=== PATIENT | female | born 1970 | race Caucasian/White ===

== ENCOUNTER 2016-07-12 09:04 | Emergency (ER) | payer OTHER ==
[~2016-07-12] VITALS: Ht 160 cm; Wt 76.0 kg
[~2016-07-12 09:04] MED LIST: FER325 PO
[2016-07-12 09:06] VITALS: Ht 160 cm; Wt 76.0 kg
[2016-07-12] MEDS ORDERED: DIPHENHYDRAMINE 25 MG CAP PO ONE (09:30)
--- NOTE | 2016-07-12 09:32 | ERA ---
ER Documentation Chief Complaint Date/Time DATE: 07/12/16 TIME: 09:31 Chief Complaint total body rash x lastnight (on clinda x 10 days) HPI Patient is a 12 hour history of hives. Patient does not state any environmental factors. The rash is covering the upper torso and extends onto the neck but does not involve the oral cavity. Patient finished clindamycin 3 days ago for a dental procedure. There has been no swelling or pain in the mouth. The patient. Patient has no other complaints. Denies any heart conditions. ROS All systems reviewed and are negative except as per history of present illness. Medications Home Meds Active Scripts Epinephrine (Epipen Jr 2-Uziel) 0.15 Mg/0.3 Ml Pen.injctr, 1 EA INJ ONCE Y for ALLERGIC REACTION, #1 EA Prov:AUBREE HODGE PA-C 07/12/16 Diphenhydramine Hcl* (Benadryl*) 25 Mg Cap, 25 MG PO Q6, #30 CAP Prov:AUBREE HODGE PA-C 07/12/16 Methylprednisolone* (Medrol* DOSE PACK) 4 Mg/Dose-Pack Tab.ds.pk, 4 MG PO . DIRECTED, #1 PACKET Prov:AUBREE HODGE PA-C 07/12/16 Ferrous Sulfate* (Ferrous Sulfate*) 325 Mg Tabec, 325 MG PO TID, #60 TAB Prov:TRINO MILTON PA-C 05/02/15 Allergies Allergies: Coded Allergies: Sulfa (Sulfonamide Antibiotics) (Verified Allergy, Intermediate, 07/12/16) clindamycin (Verified Allergy, Unknown, RASH, 07/12/16) PMhx/Soc History of Surgery: Yes (c-sections, rt wrist mass) Anesthesia Reaction: No Hx Neurological Disorder: No Hx Respiratory Disorders: No Hx Cardiac Disorders: No Hx Psychiatric Problems: No Hx Miscellaneous Medical Probl: Yes (ANEMIA) Hx Alcohol Use: No Hx Substance Use: No Hx Tobacco Use: No Smoking Status: Never smoker Physical Exam Vitals Vital Signs Date Time Temp Pulse Resp B/P Pulse Ox O2 Delivery O2 Flow Rate FiO2 07/12/16 09:06 98.4 91 18 126/69 100 Physical Exam Const: Obese 45-year-old female no acute distress Head: Atraumatic Eyes: Normal Conjunctiva ENT: Normal External Ears, Nose and Mouth. Neck: Full range of motion..~ No meningismus. Resp: Clear to auscultation bilaterally. Equal expansion bilaterally. No stridor or change in voice. Cardio: Regular rate and rhythm, no murmurs Abd: Soft, non tender, non distended. Normal bowel sounds Skin: No petechiae or rashes Back: No midline or flank tenderness Ext: No cyanosis, or edema Neur: Awake and alert Psych: Normal Mood and Affect Results 24 hrs Current Medications Medications (Trade) Dose Ordered Sig/Margo Route PRN Reason Start Time Stop Time Status Last Admin Dose Admin Diphenhydramine HCl (Benadryl) 25 mg ONCE ONCE PO 07/12/16 09:30 07/12/16 09:31 DC 07/12/16 09:25 Procedures/MDM Patient has a rash on the upper chest and is consistent with acute urticaria. Patient has no difficulty breathing no stridor and a unremarkable pulmonary examination. I have little suspicion for endangerment of the airway at this time. Patient was given Benadryl and a repeat examination had marked improvement in rash. Patient is allergic to sulfa drugs and has finished clindamycin 3 days ago. Reaction is unlikely to be to clindamycin but due to the history of allergic reactions we will go ahead and give him an EpiPen on discharge in case a second episode occurs involves the airway. Patient will be discharged at this time with instructions and return precautions. Departure Diagnosis: Primary Impression: Allergic reaction Qualified Code: T78.40XA - Allergic reaction, initial encounter Additional Instructions: Use EpiPen if difficulty breathing after allergic reaction. Follow up with your PCP within the next 1-3 days for a more thorough evaluation and a possible referral to a specialist. Return the the emergency department immediately if symptoms worsen or change. If you have any questions regarding medications, ask your pharmacist or us before you leave. If any adverse reactions occur while taking your medications, discontinue the treatment and return to the emergency department immediately. Take your medications as directed, and complete the entire course of treatment. AUBREE HODGE PA-C July 12, 2016 09:32
[2016-07-12] MEDS ORDERED: BEN25 PO (09:41)
[2016-07-12] MEDS ORDERED: EPIN0.152 INJ (09:41)
[2016-07-12] MEDS ORDERED: MED4DP PO (09:41)
== END 2016-07-12 10:05 | disposition home or self-care (01) ==
LOC: FTE 09:04
DX: R21 Rash and other nonspecific skin eruption (principal)
CPT/HCPCS: Z7502; Z7610; 99283

== ENCOUNTER 2017-04-28 23:51 | Emergency (ER) | END 2017-04-29 01:44 | disposition home or self-care (01) ==

== ENCOUNTER 2018-05-10 19:06 | Emergency (ER) | payer OTHER ==
[~2018-05-10] VITALS: Ht 160 cm; Wt 72.9 kg
[~2018-05-10 19:06] MED LIST changes: +BEN25 PO; +D-ME473S2 PO; +EPIN0.152 INJ; +MED4DP PO; +ONDA4TAB14 PO; +PHEN177S43 MT
[2018-05-10 19:09] VITALS: Ht 160 cm; Wt 72.9 kg
[2018-05-10 19:54] VITALS: BP 130/93; PULSE 95; RESP 14
[2018-05-10] MEDS ORDERED: LEVOFLOXACIN 750 MG TABLET PO ONE (20:00)
[2018-05-10] MEDS ORDERED: IBUPROFEN 800 MG TAB PO ONE (20:00)
[2018-05-10] MEDS ORDERED: IBUP-1542 PO (20:14)
[2018-05-10] MEDS ORDERED: LEVO750T25 PO (20:14)
--- NOTE | 2018-05-10 21:58 | ERD ---
ER Documentation Chief Complaint Chief Complaint C/O COUGH X2 WEEKS, HAMMONDS SINCE YESTERDAY, EPIGASTRIC PAIN SINCE TODAY HPI Patient is a 47-year-old female with no medical problems who presents with chest pain and cough. The patient has had the symptoms for the past 2 weeks. The patient is speaking in full sentences. The patient was given antibiotics by the primary doctor. She does not know what antibiotic this was. She has not had Tylenol or Motrin today. Upon review of old medical records this is the patient's ninth visit to the ER since 2010. She does have a primary doctor. ROS All systems reviewed and are negative except as per history of present illness. Medications Home Meds Active Scripts Levofloxacin* (Levaquin*) 750 Mg Tablet, 750 MG PO DAILY for 4 Days, TAB Prov:VIC JUAREZ MD 05/10/18 Ibuprofen* (Motrin*) 600 Mg Tab, 600 MG PO Q6H PRN for PAIN AND OR ELEVATED TEMP, #30 TAB Prov:VIC JUAREZ MD 05/10/18 Ondansetron (Ondansetron Odt) 4 Mg Tab.rapdis, 4 MG PO Q6H PRN for NAUSEA AND/OR VOMITING, #10 TAB Prov:PEDRO ROMERO PA-C 04/29/17 Phenol* (Chloraseptic* [place]) 177 Ml [place].pump, 2 SPRAY MT Q2H PRN for SORE THROAT, #1 BOTTLE Prov:PEDRO ROMERO PA-C 04/29/17 Dextromethorphan Hb-Promethazine Hcl* (Promethazine DM* Syrup) 473 Ml Syrup, 5 ML PO Q6 PRN for COUGH, #120 ML Prov:PEDRO ROMERO PA-C 04/29/17 Epinephrine (Epipen Jr 2-Uziel) 0.15 Mg/0.3 Ml Pen.injctr, 1 EA INJ ONCE PRN for ALLERGIC REACTION, #1 EA Prov:AUBREE HODGE PA-C 07/12/16 Diphenhydramine Hcl* (Benadryl*) 25 Mg Cap, 25 MG PO Q6, #30 CAP Prov:AUBREE HODGE PA-C 07/12/16 Methylprednisolone* (Medrol* DOSE PACK) 4 Mg/Dose-Pack Tab.ds.pk, 4 MG PO . DIRECTED, #1 PACKET Prov:AUBREE HODGE PA-C 07/12/16 Ferrous Sulfate* (Ferrous Sulfate*) 325 Mg Tabec, 325 MG PO TID, #60 TAB Prov:TRINO MILTON PA-C 05/02/15 Allergies Allergies: Coded Allergies: Sulfa (Sulfonamide Antibiotics) (Verified Allergy, Intermediate, 07/12/16) clindamycin (Verified Allergy, Unknown, RASH, 07/12/16) PMhx/Soc History of Surgery: Yes (c-sections, rt wrist mass) Anesthesia Reaction: No Hx Neurological Disorder: No Hx Respiratory Disorders: No Hx Cardiac Disorders: No Hx Psychiatric Problems: No Hx Miscellaneous Medical Probl: Yes (ANEMIA) Hx Alcohol Use: No Hx Substance Use: No Hx Tobacco Use: No Smoking Status: Never smoker FmHx Family History: No diabetes Physical Exam Vitals Vital Signs Date Temp Pulse Resp B/P (MAP) Pulse Ox O2 O2 Flow FiO2 Time Delivery Rate 05/10/18 95 14 130/93 98 Room Air 19:54 (105) 05/10/18 101.4 19:48 05/10/18 100.5 110 20 154/80 97 19:09 (104) Physical Exam Const: No acute distress Head: Atraumatic Eyes: Normal Conjunctiva ENT: Normal External Ears, Nose and Mouth. Neck: Full range of motion. No meningismus. Resp: Clear to auscultation bilaterally Cardio: Regular rate and rhythm, no murmurs Abd: Soft, non tender, non distended. Normal bowel sounds Skin: No petechiae or rashes Back: No midline or flank tenderness Ext: No cyanosis, or edema Neur: Awake and alert Psych: Normal Mood and Affect Results 24 hrs Laboratory Tests Test 05/10/18 19:48 05/10/18 19:50 Bedside Urine pH (LAB) 7.0 Bedside Urine Protein (LAB) Negative Bedside Urine Glucose (UA) Negative Bedside Urine Ketones (LAB) Negative Bedside Urine Blood Trace-intact Bedside Urine Nitrite (LAB) Negative Bedside Urine Leukocyte Esterase (L Negative POC Beta HCG, Qualitative NEGATIVE Current Medications Medications Dose Sig/Margo Start Time Status Last (Trade) Ordered Route PRN Stop Time Admin Dose Reason Admin Ibuprofen 800 mg ONCE ONCE 05/10/18 DC 05/10/18 (Motrin) PO 20:00 19:48 05/10/18 20:01 750 mg ONCE ONCE 05/10/18 DC 05/10/18 Levofloxacin PO 20:00 19:48 (Levaquin) 05/10/18 20:01 Procedures/MDM Chest x-ray negative per radiology. EKG read by me: Rate/Rhythm: Regular rate and rhythm at a normal rate Intervals: Normal Impression: No evidence of ischemia or arrhythmia Patient is a 47-year-old female who presents with cough. EKG shows no signs of ischemia. Chest x-ray showed no pneumonia or pneumothorax. However I will treat the patient with Levaquin for an acute bronchitis. The patient will need to follow-up closely with her primary doctor. She can return for any worsening symptoms. The patient understands the plan and is otherwise well-appearing. Departure Diagnosis: Primary Impression: Bronchitis Condition: Fair Patient Instructions: Bronchitis, Antiobiotic Treatment (Adult) Additional Instructions: Call your primary care doctor TOMORROW for an appointment during the next 1-2 days.See the doctor sooner or return here if your condition worsens before your appointment time. VIC JUAREZ MD May 10, 2018 21:58
== END 2018-05-10 20:31 | disposition home or self-care (01) ==
LOC: E/R 19:06
DX: J40 Bronchitis, not specified as acute or chronic (principal); R07.9 Chest pain, unspecified
CPT/HCPCS: 71045; 81003; 81025; 87400; 93005; Z7610